=== PATIENT | male | born 1945 | race Caucasian/White ===

== ENCOUNTER 2023-08-13 01:47 | Emergency (ER) | payer MEDICARE, OTHER ==
[~2023-08-13] VITALS: Ht 170.2 cm; Wt 81.0 kg
[2023-08-13] VITALS (7 sets, daily range): BP systolic 117–181; BP diastolic 47–145
[~2023-08-13 01:47] MED LIST: AMLODIPINE10 MG PO; AMOXICILLIN/CL875 MG PO; AVAPRO75 MG PO; HYDROCHLOROT12.5 MG PO; LOSARTAN POT50 MG PO; NORVASC PO; NORVASC10 M1 PO; TOBRAMYCIN0.3 % OP; ZIAC 2.52.5 MG PO; ZOCOR10 MG PO
[2023-08-13] MEDS ORDERED: TAMSULOSIN0.4 MG PO (02:02)
[2023-08-13] MEDS ORDERED: ALDACTONE25 MG PO (02:03)
[2023-08-13] MEDS ORDERED: MECLIZINE12.5 M1 PO (02:03)
[2023-08-13] MEDS ORDERED: UROCIT-K 101080 MG PO (02:04)
[2023-08-13] MEDS ORDERED: SODIUM BICARBI650 MG PO (02:05)
[2023-08-13 02:22] LABS: BASO% 0.4 % (0-3); EOS% 1.2 % (0-8); HEMATOCRIT 39.2 % (39.0-50.0); HEMOGLOBIN 12.8 g/dl (14.0-18.0); IMMATURE GRANULOCYTES 0.5 % (0.0-5.0); LYMPH% 24.4 % (15-41); MEAN CORPUSCULAR HGB 30.5 pG CALC (26.0-32.0); MEAN CORPUSCULAR HGB CONC 32.7 g/dL CAL (32.0-36.0); MONO% 7.5 % (2-13); NEUT# 5.16 thou/uL (1.82-7.42); RED BLOOD COUNT 4.2 mill/uL (4.70-6.10); RED CELL DISTRI WIDTH 12.8 % (11.5-15.5)
[2023-08-13 02:23] LABS: MEAN CELL VOLUME 93.3 fL CALC (80.0-100.0)
[2023-08-13 02:31] LABS: ALBUMIN 4.1 g/dL (3.2-5.0); ALKALINE PHOSPHATASE 66 u/l (38-126); ANION GAP 9 (6-22 (CALC)); BILIRUBIN, TOTAL 0.7 mg/dL (0.2-1.3); BUN 18 mg/dL (8-23); BUN/CREATININE RATIO 18 (12-20 (CALC)); CARBON DIOXIDE 29 mmol/l (22-30); CHLORIDE 106 mmol/l (95-108); GFR FOR AFR.AMER. > 60 ML/MIN (>=60 (CALC)); GFR OTHER RACES > 60 ML/MIN (>=60 (CALC)); POTASSIUM 3.7 mmol/l (3.5-5.1); SGOT/AST 36 u/l (19-48); SODIUM 140 mmol/l (137-146); TOTAL PROTEIN 7.3 g/dL (6.3-8.2)
[2023-08-13 02:49] LABS: URINE BILIRUBIN - DIPSTICK Negative (NEGATIVE); URINE BLOOD DIPSTICK Negative (NEGATIVE); URINE GLUCOSE - DIPSTICK Negative (NEGATIVE); URINE KETONE Negative (NEGATIVE); URINE LEUK ESTERASE Negative (NEGATIVE); URINE NITRITE - DIPSTICK Negative (Negative); URINE PROTEIN - DIPSTICK Negative (NEG-TRACE); URINE SPECIFIC GRAVITY 1.015; URINE UROBILINOGEN - DIPSTICK 0.2 E.U./dL (0.2)
[2023-08-13 02:50] LABS: URINE COLOR Yellow
== END 2023-08-13 03:37 | disposition home or self-care (01) ==
LOC: ED 01:47
PROVIDERS: Family Medicine
DX: I10 Essential (primary) hypertension (principal)